=== PATIENT | female | born 1990 | race Caucasian/White ===

== ENCOUNTER 2020-12-07 17:37 | Emergency (ER) | payer OTHER ==
[2020-12-07 18:48] LABS: HEMOGLOBIN 13.6 gm/dl (12.3-15.3); RED BLOOD COUNT 4.52 M/UL (4.00-5.10); WHITE BLOOD COUNT 8.4 K/UL (4.5-11.0)
[2020-12-07 19:01] LABS: BUN/CREATININE RATIO 10 (0-10)
== END 2020-12-07 21:00 | disposition home or self-care (01) ==
LOC: ER1 17:37
PROVIDERS: Emergency Medicine
DX: R10.11 Right upper quadrant pain (principal); R10.31 Right lower quadrant pain
CPT/HCPCS: 80053; 81001; 83690; 84703; 85025; 99284

== ENCOUNTER → 2020-12-10 | Outpatient (CLI) | payer OTHER | LOC: US 10:09 | DX: R10.11 Right upper quadrant pain (principal); R10.2 Pelvic and perineal pain | CPT/HCPCS: 76705; 76830 ==